=== PATIENT | female | born 1960 | race Caucasian/White ===

== ENCOUNTER 2022-12-05 07:18 | Emergency (ER) | payer OTHER, BC | END 2022-12-05 09:33 | disposition home or self-care (01) | LOC: JD.ED 07:18 | DX: S92.354A Nondisplaced fracture of fifth metatarsal bone, right foot, initial encounter for closed fracture (principal); S82.142A Displaced bicondylar fracture of left tibia, initial encounter for closed fracture; Z88.8 Allergy status to other drugs, medicaments and biological substances; W00.0XXA Fall on same level due to ice and snow, initial encounter | CPT/HCPCS: 73564-26-LT; 73564-LT; 73630-26-RT; 73630-RT; 99283 ==